=== PATIENT | male | born 1975 | race Caucasian/White ===

== ENCOUNTER 2016-11-08 07:59 | Day surgery (SDC) | payer OTHER ==
[2016-11-06 09:17] VITALS: BMI 25.8
[~2016-11-08 07:59] MED LIST: LACTATED RINGERS 1,000 ML IV SCH
[2016-11-08 08:31] VITALS: RESP 16; TEMP 99
[2016-11-08] MEDS ORDERED: MIDAZOLAM 2 MG/2 ML VIAL IVP ONE (08:50)
[2016-11-08] MEDS ORDERED: LIDOCAINE 1% INJ 10MG/ML (20 ML MDV) ONE (09:45)
[2016-11-08] MEDS ORDERED: PROPOFOL 10 MG/ML 20 ML VIAL IV ONE (09:45)
--- NOTE | 2016-11-08 09:47 | P.GSHP ---
History of Present Illness H&P Date: 11/08/16 Chief Complaint: GERD This a 41-year-old male who presents today for EGD. He's had complaints of GERD. She lives in a retirement with a caregiver. He is unable to give any significant medical history. 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 Smoking Status: Never smoker Past Alcohol Use History: Rare Additional Past Alcohol Use History / Comment(s): A RARE BEER Past Drug Use History: None Reported - Past Family History Mother Family Medical History: Cancer Medications and Allergies Home Medications Medication Instructions Recorded Confirmed Type Omeprazole 20 mg PO DAILY 11/06/16 11/08/16 History Allergies Allergy/AdvReac Type Severity Reaction Status Date / Time No Known Allergies Allergy Verified 11/08/16 08:21 Surgical - Exam Vital Signs Temp Pulse Resp BP Pulse Ox 99.0 F 105 H 16 159/94 99 11/08/16 08:29 11/08/16 08:29 11/08/16 08:29 11/08/16 08:29 11/08/16 08:29 - General well developed, no distress - Eyes PERRL - ENT normal pinna - Neck no masses - Respiratory normal expansion - Cardiovascular Rhythm: regular - Abdomen Abdomen: soft, non tender Assessment and Plan Plan: GERD. We'll perform EGD.
--- NOTE | 2016-11-08 09:55 | P.OP ---
Date of Procedure: 11/08/16 Preoperative Diagnosis: EGD Postoperative Diagnosis: Mild antral gastritis No evidence of hiatal hernia Procedure(s) Performed: EGD Anesthesia: MAC Surgeon: Dwaine Lee Pathology: other (Antrum) Condition: stable Disposition: PACU Description of Procedure: The patient's placed on the endoscopy table in the lateral position. He received IV sedation. The gastroscope some placed oropharynx passed into the esophagus and into the stomach. The scope was then placed through the pylorus. First and second portion of duodenum appeared normal. Scope was then brought back the antrum and this appeared mildly inflamed. A biopsies performed. The scope was then retroflexed and the remainder of the stomach appeared normal. There was no significant hiatal hernia. The GE junction was at 40 cm the distal esophagus appeared minimally inflamed a biopsies performed. The proximal esophagus appeared normal. Scope was withdrawn for patient.
[2016-11-08 10:39] VITALS: PULSE 97
[2016-11-08 11:08] VITALS: BP 157/91
== END 2016-11-08 11:35 | disposition home or self-care (01) ==
LOC: EEVIPCON 07:59 → ORWHC2ENDO 07:59
PROVIDERS: ATTEND Surgery
DX: K29.50 Unspecified chronic gastritis without bleeding (principal); K21.9 Gastro-esophageal reflux disease without esophagitis; Q99.2 Fragile X chromosome; M41.9 Scoliosis, unspecified; F79 Unspecified intellectual disabilities; B96.81 Helicobacter pylori [H. pylori] as the cause of diseases classified elsewhere; Z79.899 Other long term (current) drug therapy
CPT/HCPCS: 88305; 88342; 43239; J2250; J2001; J2704

== ENCOUNTER → 2018-01-17 | Outpatient (CLI) | payer OTHER ==
--- NOTE | 2018-01-17 14:41 | XR ---
EXAMINATION TYPE: XR hand complete LT DATE OF EXAM: 01/17/2018 COMPARISON: NONE HISTORY: Cut third digit with saw TECHNIQUE: Three-view left hand FINDINGS: No acute osseous abnormality is evident. Soft tissues appear normal. No radiopaque foreign bodies are evident. Follow-up study can be performed for continued pain IMPRESSION: 1. No acute osseous abnormality
== END | disposition home or self-care (01) ==
LOC: RADXRMAIN 13:40
PROVIDERS: ATTEND Emergency Medicine
DX: S67.193A Crushing injury of left middle finger, initial encounter (principal)

== ENCOUNTER → 2018-01-24 | Outpatient (CLI) | payer OTHER ==
--- NOTE | 2018-01-24 12:39 | XR ---
EXAMINATION TYPE: XR finger LT DATE OF EXAM: 01/24/2018 COMPARISON: Left hand x-ray from one week ago HISTORY: Laceration injury with persistent pain. TECHNIQUE: 3 views of left third finger are acquired. FINDINGS: No acute fracture or dislocation is seen. The joint spaces are preserved. No suspicious rad iodense soft tissue foreign body is noted. IMPRESSION: As above. No significant change from prior.
== END ==
LOC: RADXRMAIN 12:18
PROVIDERS: ATTEND Emergency Medicine
DX: S67.193D Crushing injury of left middle finger, subsequent encounter (principal)